=== PATIENT | female | born 1990 ===

== ENCOUNTER 2024-04-09 16:23 | Outpatient (CLI) | payer MEDICAID ==
[~2024-04-09] VITALS: Ht 170.2 cm; Wt 113.4 kg
[2024-04-09 16:51] VITALS: PULSE 106; RESP 16; O2SAT 96
[2024-04-09] MEDS: albuterol 2.5 MG/3 ML nebule NEB PRN (16:56)
== END 2024-04-09 23:59 | disposition home or self-care (01) ==
LOC: RT 16:23
PROVIDERS: ATTEND Physician Assistant
DX: J45.40 Moderate persistent asthma, uncomplicated (principal)
CPT/HCPCS: 94060; 94760